=== PATIENT | male | born 1950 | race Two or more races ===

== ENCOUNTER → 2016-08-09 | Outpatient (REF) | payer BC | LOC: M SMT 16:52 | PROVIDERS: ATTEND Nurse Practitioner Family | DX: R39.9 Unspecified symptoms and signs involving the genitourinary system (principal) ==

== ENCOUNTER → 2025-01-25 | Outpatient (REF) | payer MEDICARE ==
[~2025-01-25] MED LIST: BUSP15TA48; CARB25TA9; FLUO-365; LEVOTAB10; LISI10TA22; MELA10TA14 PO; MIRTAZAPINE; MULTIVITAMIN PO; SIMV40TA20
== END ==
LOC: M LAB REF 16:52
PROVIDERS: ATTEND Neuromusculoskeletal Medicine, Sports Medicine
DX: M17.12 Unilateral primary osteoarthritis, left knee (principal)

== ENCOUNTER → 2025-01-25 | Outpatient (CLI) | payer MEDICARE | LOC: M SOG 07:37 | PROVIDERS: ATTEND Neuromusculoskeletal Medicine, Sports Medicine | DX: M25.562 Pain in left knee (principal); M17.12 Unilateral primary osteoarthritis, left knee ==

== ENCOUNTER 2025-03-15 15:19 | Outpatient (CLI) | payer MEDICARE ==
[~2025-03-15] VITALS: Ht 170.2 cm; Wt 102.0 kg
[~2025-03-15 15:19] MED LIST changes: +ALBUTEROL SULFATE 2.5 MG/0.5 ML INH CONCENTRATE NEB SOLN INH PRN; +EPINEPHrine INJ 1 MG/ML 1ML AMP IM PRN; +diphenhydrAMINE 50 MG/ML VIAL IV PRN
[2025-03-15 15:30] VITALS: BP 144/65; O2SAT 95
[2025-03-15] MEDS: IRON SUCROSE 200MG IVP IV ONE (15:50)
[2025-03-15 16:30] VITALS: BP 125/59; O2SAT 97
== END 2025-03-15 16:30 | disposition home or self-care (01) ==
LOC: M INFU 15:19
DX: D50.9 Iron deficiency anemia, unspecified (principal)
CPT/HCPCS: 96374; J1756

== ENCOUNTER 2025-03-22 15:05 | Outpatient (CLI) | payer MEDICARE ==
[~2025-03-22] VITALS: Ht 170.2 cm; Wt 102.3 kg
[2025-03-22] MEDS: IRON SUCROSE 200MG IVP IV ONE (15:21)
[2025-03-22 15:42] VITALS: BP 112/55; O2SAT 95
== END 2025-03-22 15:42 ==
LOC: M INFU 15:05
DX: D50.9 Iron deficiency anemia, unspecified (principal)
CPT/HCPCS: 96374; J1756

== ENCOUNTER 2025-04-03 15:14 | Outpatient (CLI) | payer MEDICARE ==
[~2025-04-03] VITALS: Ht 170.2 cm; Wt 102.3 kg
[2025-04-03 15:30] VITALS: BP 119/59; O2SAT 96
[2025-04-03] MEDS: IRON SUCROSE 200MG IVP IV ONE (15:43)
[2025-04-03 16:10] VITALS: BP 112/54; O2SAT 96
== END 2025-04-03 16:10 | disposition home or self-care (01) ==
LOC: M INFU 15:14
DX: D50.9 Iron deficiency anemia, unspecified (principal)
CPT/HCPCS: 96374; J1756